=== PATIENT | male | born 1990 | race African-American/Black ===

== ENCOUNTER 2016-11-20 11:48 | Emergency (ER) | payer MEDICAID, SELFPAY ==
--- NOTE | 2016-11-20 13:59 | CT ---
CT BRAIN WITHOUT CONTRAST: History: Trauma. Headache. FINDINGS: No evidence of acute intracranial midline shift or abnormal extraaxial fluid collection is seen. Th e ventricular size is normal and the basal cisterns patent. The bony calvarium is intact. The visu alized paranasal sinuses and mastoid air cells are well aerated. IMPRESSION: No CT evidence of acute intracranial process. POS: [facility]
--- NOTE | 2016-11-20 14:00 | CT ---
CT FACE NONCONTRAST: History: Trauma, facial injury. FINDINGS: The globes, mandible, and zygomatic arches are intact. Small amount of mucosal thickening is presen t within the maxillary sinuses. No displaced fracture or air fluid levels are apparent. IMPRESSION: No acute traumatic injury of the face is demonstrated. POS: [facility]
== END 2016-11-20 14:27 ==
LOC: MADERS 11:48
DX: H11.32 Conjunctival hemorrhage, left eye (principal); S00.83XA Contusion of other part of head, initial encounter; J45.909 Unspecified asthma, uncomplicated; F17.210 Nicotine dependence, cigarettes, uncomplicated; K21.9 Gastro-esophageal reflux disease without esophagitis; W22.8XXA Striking against or struck by other objects, initial encounter
CPT/HCPCS: 70450; 70486

== ENCOUNTER 2024-06-14 02:07 | Emergency (ER) | payer SELFPAY ==
[2024-06-14] MEDS ORDERED: Tetracaine 0.5% PF 4 ML BOT ONE (02:26)
[2024-06-14] MEDS ORDERED: Loratadine 10 MG TAB ONE (03:02)
== END 2024-06-14 03:10 | disposition home or self-care (01) ==
LOC: MADERS 02:07
DX: H10.11 Acute atopic conjunctivitis, right eye (principal); H11.421 Conjunctival edema, right eye; F17.210 Nicotine dependence, cigarettes, uncomplicated
CPT/HCPCS: 99283